=== PATIENT | male | born 1965 | race Caucasian/White ===

== ENCOUNTER 2017-06-04 22:58 | Emergency (ER) | payer MEDICAID, SELFPAY ==
[2017-06-04 22:59] VITALS: BP 192/141; PULSE 91; RESP 18; TEMP 36.3; O2SAT 96; BMI 29.9
--- NOTE | 2017-06-04 23:15 | EKG12_ITS ---
Test Reason : CP Blood Pressure : / mmHG Vent. Rate : 090 BPM Atrial Rate : 090 BPM P-R Int : 164 ms QRS Dur : 078 ms QT Int : 348 ms P-R-T Axes : 039 -14 -15 degrees QTc Int : 425 ms Normal sinus rhythm Nonspecific T wave abnormality Abnormal ECG Confirmed by JIMI SINGH ([id number]), loan expeditor DESTINY RICHARDS ([id number]) on 06/09/2017 10:01:59 AM Referred By: KRISTY Confirmed By:JIMI SINGH
--- NOTE | 2017-06-04 23:20 | RAD_ITS ---
STUDY: X-RAY CHEST REASON FOR EXAM: Male, 51 years old. Chest pain TECHNIQUE: Frontal and lateral views COMPARISON: January 03, 2017 FINDINGS: The lungs are clear and expanded. There is no demonstrated pleural abnormality. Normal size heart. Normal mediastinum and elsa. Normal visualized pulmonary arteries. Calcified aortic arch and descending thoracic aorta. Normal visualized thoracic spine. Normal visualized ribs, clavicles, and shoulders. There is no demonstrated abnormality of the visualized soft tissue structures of the upper abdomen. RAD/Chest PA and Lateral IMPRESSION: Normal x-ray examination of the chest. Electronically Signed: Leno Barnhart DO at 23:36 EST Tel [phone], Service support ,
[2017-06-04 23:22] VITALS: O2SAT 98
[2017-06-04 23:23] LABS: Absolute Lymphocyte Count 1.95 X10^3/ul (0.83-4.51); Absolute Neutrophil Count 3.9 X10^3/uL (2.0-7.7); Basophil# 0.02 X10^3/uL; Basophil% 0.3 % (0-1); Eosinophil# 0.18 X10^3/uL; Eosinophils% 2.7 % (0-5); Hematocrit 43.2 % (40-54); Hemoglobin 15.7 g/dl (13.0-16.5); Lymphocyte # 1.95 X10^3/ul (4.0); Lymphocyte % 29.5 % (19-41); Mean Corp Hgb Conc 36.3 g/gl (32-36); Mean Corpuscular Hgb 31.3 pg (27.0-32.0); Mean Corpuscular Volume 86.2 fL (80-94); Mean Platelet Vol. 9.3 fl (6.2-12.0); Monocyte# 0.53 X10^3/uL; Neutrophil # 3.92 X10^3/uL (2.7-7.7); Neutrophil % 59.3 % (47-70); Platelet Count 203 K/mm3 (150-450); RBC Distribution Width CV 12.1 % (11.6-14.6); RBC Distribution Width SD 37.3 fl (35.1-43.9); Red Blood Count 5.01 M/mm3 (4.6-6.2); White Blood Count 6.6 K/mm3 (4.4-11.0)
[2017-06-04 23:28] LABS: POSITIVE COUNT NO; POSITIVE DIFFERENTIAL NO; POSITIVE MORPHOLOGY NO
[2017-06-04] MEDS: Aspirin 81 MG TAB.CHEW 162 MG PO (23:36)
[2017-06-04 23:37] LABS: Anion Gap 10 (5-15); BUN 20 mg/dL (7-18); BUN/Creat Ratio 14.2 RATIO (10-20); Calcium,Total 8.4 mg/dL (8.5-10.1); Chloride 105 mmol/L (98-107); Creatinine, Serum 1.41 mg/dL (0.70-1.30); D-Dimer Quantitative (DVT/PE) < 0.27 FEU/ug/m (0.27-0.49); EST Glomerular Filtration Rate 57 mL/min (>60); Est Glom Filt Rate - Afr Amer 68 mL/min (>60); Estimated Creatinine Clearance 70.83 ml/min; Glucose 140 mg/dL (70-110); Potassium 3.4 mmol/L (3.5-5.1); Sodium Level 141 mmol/L (136-145)
[2017-06-04 23:42] VITALS: BP 137/90; PULSE 76
[2017-06-04 23:48] VITALS: BP 138/105; PULSE 94
[2017-06-05 00:29] VITALS: BP 118/86; PULSE 77; RESP 18; O2SAT 94
--- NOTE | 2017-06-05 00:52 | EKG12_ITS ---
Test Reason : REPEAT Blood Pressure : / mmHG Vent. Rate : 069 BPM Atrial Rate : 069 BPM P-R Int : 160 ms QRS Dur : 076 ms QT Int : 394 ms P-R-T Axes : 029 -09 -03 degrees QTc Int : 422 ms Normal sinus rhythm Nonspecific T wave abnormality Abnormal ECG Confirmed by JIMI SINGH ([id number]), managing editor DESTINY RICHARDS ([id number]) on 06/09/2017 10:01:48 AM Referred By: KRISTY Confirmed By:JIMI SINGH
[2017-06-05 01:15] VITALS: BP 122/83; PULSE 63; RESP 12; O2SAT 96
--- NOTE | 2017-06-05 02:00 | ED.VISSUMM ---
- ER Visit Summary Date of Service: 06/05/17 Chief Complaint: [] Chest pain History of Present Illness: The patient is a 51 M [] complaining of chest pain while watching a basketball game which made him upset. Symptoms started 1 hour ago. Reports chest pressure, denies pain. Denies nausea and vomiting. Denies diaphoresis. Denies shortness of breath. Reports he had a negative cardiac catheterization 2 years ago at [facility]. Reports he does smoke. Physical Examination: [] Afebrile, vital signs stable. Cardiovascular exam is regular rate and rhythm. Lungs are clear to auscultation. Abdomen is soft nontender. No lower extremity edema. Test Results: [] EKG shows normal sinus rhythm with rate of 90 without any ischemic changes. Repeat EKG approximately 2 hours later is unchanged. Initial troponin is less than 0.02. Repeat troponin is less than 0.02. CBC and BMP are within normal limits. Chest x-ray 2 views is negative. Emergency Department Course and Treatment: [] Given aspirin nitroglycerin upon arrival. He did have some hypertension which resolved after nitroglycerin. After 3 hours of observation and serial examination patient was completely pain-free. He represents a low risk patients with his complaint of chest pain with a JOSE score of 1 out of 7. In light of the negative cardiac catheterization 2 years ago and the negative workup today, was encouraged to follow-up with his primary care physician for an outpatient stress test. Treatment Plan: [] Discharge to follow-up with PCP. Disposition: [] Discharge, stable. Impression: [] Chest pain, unknown etiology This note was generated with [employer] dictation software. It may contain incorrect words, spelling, and punctuation that were not noted in review of the chart prior to signing ED Disposition - Plan for ED Patient: Chief Complaint: Chest Pain Referrals: Osiel Zarate MD [Primary Care Provider] -
--- NOTE | 2017-06-05 02:03 | ED.DCSUM_ITS ---
- ER Visit Summary Date of Service: 06/05/17 Chief Complaint: [] Chest pain History of Present Illness: The patient is a 51 M [] complaining of chest pain while watching a basketball game which made him upset. Symptoms started 1 hour ago. Reports chest pressure, denies pain. Denies nausea and vomiting. Denies diaphoresis. Denies shortness of breath. Reports he had a negative cardiac catheterization 2 years ago at [facility]. Reports he does smoke. Physical Examination: [] Afebrile, vital signs stable. Cardiovascular exam is regular rate and rhythm. Lungs are clear to auscultation. Abdomen is soft nontender. No lower extremity edema. Test Results: [] EKG shows normal sinus rhythm with rate of 90 without any ischemic changes. Repeat EKG approximately 2 hours later is unchanged. Initial troponin is less than 0.02. Repeat troponin is less than 0.02. CBC and BMP are within normal limits. Chest x-ray 2 views is negative. Emergency Department Course and Treatment: [] Given aspirin nitroglycerin upon arrival. He did have some hypertension which resolved after nitroglycerin. After 3 hours of observation and serial examination patient was completely pain-free. He represents a low risk patients with his complaint of chest pain with a JOSE score of 1 out of 7. In light of the negative cardiac catheterization 2 years ago and the negative workup today, was encouraged to follow-up with his primary care physician for an outpatient stress test. Treatment Plan: [] Discharge to follow-up with PCP. Disposition: [] Discharge, stable. Impression: [] Chest pain, unknown etiology This note was generated with [employer] dictation software. It may contain incorrect words, spelling, and punctuation that were not noted in review of the chart prior to signing ED Disposition - Plan for ED Patient: Chief Complaint: Chest Pain Referrals: Osiel Zarate MD [Primary Care Provider] -
--- NOTE | 2017-06-05 02:03 | ED.DEP ---
ED Disposition - Plan for ED Patient: Disposition: Home or Assisted Living Chief Complaint: Chest Pain Instructions: ED Chest Pain O Referrals: Osiel Zarate MD [Primary Care Provider] -
[2017-06-05 02:16] VITALS: BP 115/82; PULSE 69; RESP 19; O2SAT 95
--- NOTE | 2017-06-05 02:17 | ED.RN ---
PT GIVEN WRITTEN AND VERBAL DISCHARGE INSTRUCTIONS. PT VERBALIZES UNDERSTANDING. IV D/C AND COVERED IN 22 GAUZE DRESSING. PT AMBUALTORY HOME WITH SELF AND TO FOLLOW UP WITH PCP. REPORTS HE WILL RETURN FOR ANY NEW OR WORSENED SX.
== END 2017-06-05 02:18 | disposition home or self-care (01) ==
PROVIDERS: Emergency Provider Emergency Medicine; Family Provider Family Medicine; PCP Family Medicine
DX: R07.9 Chest pain, unspecified (principal); Z72.0 Tobacco use
CPT/HCPCS: 36415; 71046; 80048; 84484; 85025; 85379; 93005; 99285

== ENCOUNTER 2018-08-27 01:09 | Emergency (ER) | payer SELFPAY ==
[2018-08-27 01:10] VITALS: BP 132/106; PULSE 105; PULSE 110; RESP 15; RESP 16; TEMP 37.4; O2SAT 95; O2SAT 96; BMI 29.0
[2018-08-27 01:13] VITALS: O2SAT 94
--- NOTE | 2018-08-27 01:35 | RAD_ITS ---
HISTORY: cough x 3 days EXAM:XR Chest 2 Views COMPARISON: 06/04/2017 FINDINGS: EKG leads in place. No significant change. Normal heart size. Prominent lung volumes. No vascular congestion, pleural effusion, or acute pulmonary infiltration. No pneumothorax. The bony thorax appears intact. RAD/Chest PA and Lateral IMPRESSION: No acute cardiopulmonary disease. No significant interval change. at 1445 Reported and signed by: Nico Bose MD Electronically Signed: Nico Bose, at 2:34 EDT Tel , Service support ,
--- NOTE | 2018-08-27 02:43 | ED.DCSUM_ITS ---
- ER Visit Summary Date of Service: 08/27/18 Chief Complaint: Cough History of Present Illness: The patient is a 52 M who presents with a cough. He was diagnosed with influenza about 3 weeks ago. He has had some persistent cough since then but it worsened particularly in the last 3 days. He states he is intermittently short of breath. He also complains of chills sweats runny nose. He complains of burning chest pain with coughing. No vomiting. No diarrhea. He denies any medical problems or daily medications. Physical Examination: Afebrile initial heart rate 105 vitals otherwise unremarkable No distress Moist mucous membranes Heart regular rate and rhythm Lungs are clear I do not appreciate rales rhonchi wheezing Abdomen soft Test Results: Two-view chest x-ray shows no acute disease. Emergency Department Course and Treatment: X-ray normal as above. Patient's presentation is consistent with bronchitis. He has a benign exam and is well- appearing. He was advised on supportive care and discharged home. Treatment Plan: [] Disposition: Discharge Impression: Bronchitis This note was generated with [employer] dictation software. It may contain incorrect words, spelling, and punctuation that were not noted in review of the chart prior to signing ED Disposition - Plan for ED Patient: Referrals: Osiel Zarate MD [Primary Care Provider] -
--- NOTE | 2018-08-27 02:43 | ED.DEP ---
ED Disposition - Plan for ED Patient: Instructions: Acute Bronchitis Referrals: Osiel Zarate MD [Primary Care Provider] -
[2018-08-27 02:48] VITALS: BP 148/82; PULSE 88; RESP 16; O2SAT 99
== END 2018-08-27 02:49 | disposition home or self-care (01) ==
PROVIDERS: Emergency Provider Emergency Medicine; Family Provider Family Medicine; PCP Family Medicine
DX: J02.9 Acute pharyngitis, unspecified (principal)
CPT/HCPCS: 71046; 99282

== ENCOUNTER 2020-02-13 11:32 | Emergency (ER) | payer SELFPAY ==
[2020-02-13 11:33] VITALS: BP 127/95; PULSE 62; RESP 14; TEMP 36.4; O2SAT 97; BMI 30.4
--- NOTE | 2020-02-13 11:53 | EKG12_ITS ---
Test Reason : CP REPEAT Blood Pressure : / mmHG Vent. Rate : 055 BPM Atrial Rate : 055 BPM P-R Int : 160 ms QRS Dur : 086 ms QT Int : 438 ms P-R-T Axes : 016 -12 -14 degrees QTc Int : 419 ms Sinus bradycardia Otherwise normal ECG Confirmed by AMIE CASTILLO, SAMEERA ([id number]), clinical editor MUNA ARCOS ([id number]) on 02/15/2020 10:11:02 AM Referred By: KATELYNN Confirmed By:SAMEERA HOLLOWAY MD
--- NOTE | 2020-02-13 11:54 | ED.VIS.GEN ---
History of Present Illness Chief Complaint: Chest Pain Informant: Patient Onset: Today Current Severity: Mild Maximum Severity: Moderate Narrative: Patient presents with burning sensation in his upper chest and throat. He states he woke from sleep about an hour ago with burning in his upper chest and throat. He does have a history of reflux and takes Nexium every couple days. He states this was not typical of his reflux. He tried drinking some water and taking some Tums without improvement. He states after arriving in the emergency room symptoms seem to be improving. He does report a history of hypertension and high cholesterol. He had a heart cath approximately 10 years ago that he reports was normal. - Past Medical History (1) Hypertension Status: Chronic (2) High cholesterol Status: Chronic (3) Kidney stone Status: Chronic (4) Anxiety Status: Chronic Past Medical History - Allergies and Home Meds Allergies/Adverse Reactions: Allergies Penicillins [PCN] Allergy (Verified 02/13/20 11:35) Hives Primary Care Physician: Osiel Zarate MD [Primary Care Provider] - Prior records reviewed: Yes Surgical History: tonsillectomy Smoking Status: Never smoker - Family History Maternal Family History: Reports: Heart Disease Paternal Family History: Reports: No pertinent history Review of Systems General: Denies: Chills, Fever Eyes: Denies: Visual changes - bilaterally ENT: Reports: Sore throat. Denies: Bilateral ear pain Cardiovascular: Reports: Chest pain Respiratory: Denies: Dyspnea, Cough Gastrointestinal: Denies: Abdominal pain, Nausea, Vomiting, Diarrhea Musculoskeletal: Denies: Swelling, Extremity Pain Skin: Denies: Rash Neurological: Denies: Headache Endocrine: Denies: Polyuria, Polydipsia Hematologic: Denies: Easy bruising Allergy: Denies: Uticaria Physical Exam Vital Signs/Narrative: Vital Signs Temp Pulse Resp BP Pulse Ox 02/13/20 11:33 97.6 F L 62 14 127/95 H 97 Inital Vital Signs reviewed: Yes General: Well nourished, Well developed Head: Normocephalic ENT: Moist mucous membranes Neck: Supple Cardiovascular: Regular rate, Regular rhythm Respiratory: No distress, CTA bilaterally Abdomen: Soft, Nontender Extremities: Nontender Skin: Normal color Neurological: Alert, Oriented x3 Psychological: Normal affect Diagnostic/Tx/Re-eval Impressions Chest X-Ray 02/13/20 12:34 IMPRESSION: Normal x-ray examination of the chest. Electronically Signed: Sandra Adams, at 12:54 EDT Tel , Service support , 02/13/20 12:34 Chest 1 View (Portable) [RAD] Stat Laboratory Results 02/13/20 02/13/20 02/13/20 11:35 11:35 14:45 WBC 5.5 RBC 4.98 Hgb 15.2 Hct 44.8 MCV 90.0 MCH 30.5 MCHC 33.9 RDW Std Deviation 38.2 RDW Coeff of Jesse 11.6 Plt Count 184 MPV 9.3 Immature Gran % (Auto) 0.400 Neut % (Auto) 54.7 Lymph % (Auto) 29.8 [place] % (Auto) 9.3 Eos % (Auto) 5.3 H Baso % (Auto) 0.5 Absolute Neuts (auto) 3.0 Absolute Lymphs (auto) 1.64 Nucleated RBC % 0 Sodium 141 Potassium 3.7 Chloride 108 H Carbon Dioxide 27.0 Anion Gap 6 BUN 17 Creatinine 1.37 H Estim Creat Clear Calc 70.47 Est GFR (MDRD) Af Amer 70 Est GFR (MDRD) Non-Af 58 L BUN/Creatinine Ratio 12.4 Glucose 97 Calcium 8.9 Troponin I < 0.015 < 0.015 - EKG Initial EKG Interpretation: Sinus Bradycardia - Sinus bradycardia at 58 with no acute ischemia. Follow-up EKG Interpretation: Sinus Bradycardia - Sinus bradycardia at 55 with no acute ischemia. - Medical Decision Making Patient was given aspirin as well as a dose of Protonix. On repeat evaluation he is resting comfortably. Patient had only had pain for about 45 minutes with the initial blood work was drawn. In light of this a 3-hour repeat test was drawn and remains normal. He will be discharged home at this time. He is instructed to take his Nexium every day and not eat or drink anything right before going to bed to see if this helps. ED Disposition - Plan for ED Patient: Disposition: Home or Assisted Living Diagnosis: Atypical chest pain, GERD (gastroesophageal reflux disease) Instructions: ED Chest Pain NonCardiac, Lifestyle Changes for Controlling GERD Referrals: Osiel Zarate MD [Primary Care Provider] - 3-5 Days if not improving
[2020-02-13] MEDS: Aspirin 81 MG TAB.CHEW 324 MG PO (12:01)
[2020-02-13 12:02] LABS: Absolute Lymphocyte Count 1.64 X10^3/uL (0.83-4.51); Basophil# 0.03 X10^3/uL; Basophil% 0.5 % (0-1); Eosinophil# 0.29 X10^3/uL; Eosinophils% 5.3 % (0-5); Hematocrit 44.8 % (40-54); Hemoglobin 15.2 g/dL (13.0-16.5); Lymphocyte # 1.64 X10^3/ul (4.0); Lymphocyte % 29.8 % (19-41); Mean Corp Hgb Conc 33.9 g/dL (32-36); Mean Corpuscular Hgb 30.5 pg (27.0-32.0); Mean Platelet Vol. 9.3 fl (6.2-12.0); Monocyte# 0.51 X10^3/uL; Monocyte% 9.3 % (0-10); NRBC Flagged by Analyzer 0 % (0-5); Neutrophil # 3.01 X10^3/uL (2.7-7.7); Neutrophil % 54.7 % (47-70); Platelet Count 184 K/mm3 (150-450); RBC Distribution Width CV 11.6 % (11.6-14.6); RBC Distribution Width SD 38.2 fl (35.1-43.9); Red Blood Count 4.98 M/mm3 (4.6-6.2); White Blood Count 5.5 K/mm3 (4.4-11.0)
[2020-02-13 12:28] LABS: Anion Gap 6 (5-15); BUN 17 mg/dL (7-18); BUN/Creat Ratio 12.4 RATIO (10-20); Calcium,Total 8.9 mg/dL (8.5-10.1); Chloride 108 mmol/L (98-107); Creatinine, Serum 1.37 mg/dL (0.70-1.30); EST Glomerular Filtration Rate 58 mL/min (>60); Est Glom Filt Rate - Afr Amer 70 mL/min (>60); Estimated Creatinine Clearance 70.47 ml/min; Glucose 97 mg/dL (74-106); Potassium 3.7 mmol/L (3.5-5.1); Sodium Level 141 mmol/L (136-145)
--- NOTE | 2020-02-13 12:34 | RAD_ITS ---
STUDY: X-RAY CHEST REASON FOR EXAM: Male, 54 years old. BURNING IN CHEST AND THROAT SINCE WAKING UP THIS MORNING -- HX OF HTN TECHNIQUE: Single AP portable view of the chest. COMPARISON: None. FINDINGS: The lungs are clear and expanded. There is no demonstrated pleural abnormality. Normal size heart. Normal mediastinum and elsa. Normal visualized pulmonary arteries. Normal visualized aortic arch and descending thoracic aorta. Normal visualized thoracic spine. Normal visualized ribs, clavicles, and shoulders. There is no demonstrated abnormality of the visualized soft tissue structures of the upper abdomen. RAD/Chest 1 View (Portable) IMPRESSION: Normal x-ray examination of the chest. Electronically Signed: Sandra Adams, at 12:54 EDT Tel , Service support ,
[2020-02-13 13:25] VITALS: BP 142/106; PULSE 50; RESP 16; O2SAT 97
[2020-02-13] MEDS: 0.9% Normal Saline 1,000 ML 150 ML IV (13:25)
[2020-02-13 13:26] VITALS: O2SAT 98
--- NOTE | 2020-02-13 14:17 | EKG12_ITS ---
Test Reason : CP Blood Pressure : / mmHG Vent. Rate : 058 BPM Atrial Rate : 058 BPM P-R Int : 164 ms QRS Dur : 088 ms QT Int : 416 ms P-R-T Axes : 024 -14 -08 degrees QTc Int : 408 ms Sinus bradycardia Otherwise normal ECG Confirmed by AMIE CASTILLO, SAMEERA ([id number]), movie editor MUNA ARCOS ([id number]) on 02/15/2020 10:11:16 AM Referred By: Confirmed By:SAMEERA HOLLOWAY MD
[2020-02-13 15:55] VITALS: BP 128/98; PULSE 48; RESP 17; O2SAT 96
== END 2020-02-13 15:59 | disposition home or self-care (01) ==
PROVIDERS: Emergency Provider Emergency Medicine; PCP Family Medicine
DX: R07.89 Other chest pain (principal); K21.9 Gastro-esophageal reflux disease without esophagitis; R00.1 Bradycardia, unspecified; E78.00 Pure hypercholesterolemia, unspecified; F41.9 Anxiety disorder, unspecified; I10 Essential (primary) hypertension; Z82.49 Family history of ischemic heart disease and other diseases of the circulatory system; Z87.442 Personal history of urinary calculi; Z88.0 Allergy status to penicillin
CPT/HCPCS: 71045; 80048; 84484; 85025; 93005; 96365; 96366; 99285; J7030; A4216

== ENCOUNTER 2020-03-11 05:55 | Emergency (ER) | payer SELFPAY ==
[2020-03-11 05:56] VITALS: BP 139/111; PULSE 104; RESP 16; TEMP 36.8; O2SAT 96; BMI 29.4
--- NOTE | 2020-03-11 06:15 | ED.VISSUMM ---
- ER Visit Summary Date of Service: 03/11/20 Chief Complaint: Headache, sore throat, fever History of Present Illness: The patient is a 54 M who presents with headache, sore throat, and fever that is been getting worse over the past 5 days. Patient was seen at an urgent care recently and had a COVID-19 test done there. Patient does not know the results of this yet. Patient states his headache is sharp and generalized. Patient states his fever has been up to 101 at home. Patient admits to occasional shortness of breath. Patient also admits to diarrhea. Patient denies any nausea or vomiting. Patient denies any cough. Physical Examination: Vital signs are stable. Patient is afebrile. Patient is in no acute distress. Tympanic membranes are clear bilaterally. Oral mucosa is pink and moist. Neck is supple. Trachea is midline. There is no JVD. Heart was regular rate and rhythm. Lungs are clear and equal bilaterally. Abdomen is soft. Bowel sounds are normal. There is no tenderness. Cranial nerves II through XII are intact. There are no focal motor or sensory deficits noted. Test Results: Portable chest x-ray was obtained. There is no acute cardiopulmonary process on my interpretation. Emergency Department Course and Treatment: Patient was advised of his findings. Patient was advised that this is most likely COVID-19. Patient was instructed to follow-up with the urgent care for his test results. Patient was instructed to take Tylenol or ibuprofen as needed for fever. Patient was also instructed to follow-up with his primary care physician in 5 to 7 days. Patient was instructed to return if worse in any way. Patient understood and was agreeable with the plan. All questions were answered. Disposition: Discharge home Impression: 1. Viral upper respiratory infection 2. Suspected COVID-19 This note was generated with [employer] software. It may contain incorrect words, spelling, and punctuation that were not noted in review of the chart prior to signing ED Disposition - Plan for ED Patient: Disposition: Home or Assisted Living Diagnosis: Viral upper respiratory infection Instructions: ED URI Viral Referrals: Osiel Zarate MD [Primary Care Provider] - 3-5 Days
--- NOTE | 2020-03-11 06:35 | RAD_ITS ---
STUDY: X-RAY CHEST REASON FOR EXAM: Male, 54 years old. pt with h/a, sore throat, runny nose. temp of 101 yesterday. TECHNIQUE: Single AP portable view of the chest. COMPARISON: 02/13/2020 FINDINGS: There are no confluent pulmonary infiltrates. There is no demonstrated pleural abnormality. Normal size heart. Normal mediastinum and elsa. Normal visualized aortic arch and descending thoracic aorta. There are no demonstrated acute fractures or destructive bone lesions. There is no demonstrated abnormality of the visualized soft tissue structures of the upper abdomen. RAD/Chest 1 View (Portable) IMPRESSION: Normal x-ray examination of the chest. Electronically Signed: Jude John MD at 7:01 EST , Service support ,
[2020-03-11 07:22] VITALS: BP 121/74; PULSE 82; RESP 18; O2SAT 97
--- NOTE | 2020-03-11 07:23 | ED.RN ---
THIS NURSE REVIEWED D/C INSTRUCTIONS WITH PT. PT VERBALIZED UNDERSTANDING OF INSTRUCTIONS. PT DENIES FURTHER NEEDS OR QUESTIONS AT THIS TIME. PT AMBULATES FROM ROOM ON OWN WITHOUT ASSISTANCE FROM STAFF
== END 2020-03-11 07:25 | disposition home or self-care (01) ==
PROVIDERS: Emergency Provider Emergency Medicine; PCP Family Medicine
DX: J06.9 Acute upper respiratory infection, unspecified (principal); R06.02 Shortness of breath; R19.7 Diarrhea, unspecified; J02.9 Acute pharyngitis, unspecified; Z20.828 Contact with and (suspected) exposure to other viral communicable diseases
CPT/HCPCS: 71045; 99282

== ENCOUNTER 2020-03-12 11:26 | Emergency (ER) | payer SELFPAY ==
[2020-03-11 05:56] VITALS: BMI 29.4
[2020-03-12 11:26] VITALS: PULSE 86; RESP 16; TEMP 36.4; O2SAT 98; BMI 29.7
[2020-03-12 11:34] VITALS: BP 133/94
--- NOTE | 2020-03-12 11:42 | ED.DCSUM_ITS ---
- ER Visit Summary Date of Service: 03/12/20 Chief Complaint: Shortness of breath, loss of taste and smell History of Present Illness: The patient is a 54 M who presents with shortness of breath and loss of his taste and smell. He was tested for coronavirus 4 days ago. He was the result was positive. Last night he was feeling good. He was seen here yesterday and had a chest x-ray which showed no acute abnormalities. He was discharged home with symptomatic care. He states last night he started getting a little bit worse. He lost his sense of taste and smell. His temperature was 102 ?F. It was controlled with Tylenol and ibuprofen. No history of any lung issues. He denies any chest pain. He has no other health issues. He is a non-smoker. Physical Examination: Vital signs reviewed. HEENT exam unremarkable. Heart is regular rate and rhythm without murmurs. Lungs are clear to auscultation. Abdomen is soft and nontender. Extremities reveal no edema. Skin exam normal. Neurologic exam normal. Test Results: None performed Emergency Department Course and Treatment: The patient is known positive for coronavirus. His pulse ox and other vital signs are normal at this time. He is in no distress. He was concerned because his symptoms worsen. I instructed him on the clinical course of this virus. I will give him an albuterol inhaler to help with his respiratory symptoms. He will continue Tylenol and ibuprofen. He is going to call his doctor for follow-up Treatment Plan: [] Disposition: Discharge Impression: COVID-19 This note was generated with [employer] dictation software. It may contain incorrect words, spelling, and punctuation that were not noted in review of the chart prior to signing ED Disposition - Plan for ED Patient: Disposition: Home or Assisted Living Prescriptions: Albuterol Inhaler [Ventolin Hfa] 1 - 2 puff INHALATION Q4H PRN PRN #1 inhaler PRN Reason: Wheezing Transmission Status: Pending to [id number] Referrals: Osiel Zarate MD [Primary Care Provider] -
== END 2020-03-12 12:12 | disposition home or self-care (01) ==
LOC: ED 11:57
PROVIDERS: Emergency Provider Emergency Medicine; PCP Family Medicine
DX: U07.1 COVID-19 (principal)
CPT/HCPCS: 99282

== ENCOUNTER 2020-03-14 14:42 | Emergency (ER) | payer SELFPAY ==
[2020-03-14 14:43] VITALS: BP 141/18; PULSE 109; RESP 18; TEMP 37.2; O2SAT 96; BMI 29.7
== END 2020-03-14 16:02 ==
LOC: ED 15:57
PROVIDERS: Emergency Provider Emergency Medicine; PCP Family Medicine
DX: R06.02 Shortness of breath (principal)

== ENCOUNTER 2020-03-16 11:11 | Emergency (ER) | payer SELFPAY ==
[2020-03-16 11:12] VITALS: BP 107/76; PULSE 76; RESP 18; TEMP 36.8; O2SAT 97; BMI 29.7
--- NOTE | 2020-03-16 12:23 | ED.VIS.GEN ---
History of Present Illness Chief Complaint: Headache Informant: Patient Narrative: 54-year-old male diagnosed with Covid?19 7 days ago presenting with symptoms of dizziness. He states he has had some intermittent fevers. His biggest complaint is that he feels dizzy sometimes. He cannot decide whether it is lightheaded or vertiginous in nature. He states he had a headache this morning that resolved with Tylenol. Still has a slight cough. He has body aches as well. - Past Medical History (1) High cholesterol Status: Chronic (2) Hypertension Status: Chronic Past Medical History - Allergies and Home Meds Allergies/Adverse Reactions: Allergies Penicillins [PCN] Allergy (Verified 03/16/20 11:12) Hives Primary Care Physician: Osiel Zarate MD [Primary Care Provider] - Past Medical History: - - Reviewed in problem list Surgical History: noncontributory, tonsillectomy Lives: With Family Smoking Status: Unknown if ever smoked Alcohol: None Drugs: None - Family History Maternal Family History: Reports: Heart Disease Paternal Family History: Reports: No pertinent history Review of Systems General: Reports: Chills, Fever Eyes: Reports: - - Dizziness. Denies: Visual changes - bilaterally, Diplopia ENT: Denies: Rhinorrhea, Sore throat Cardiovascular: Denies: Chest pain, Palpitations Respiratory: Reports: Cough. Denies: Dyspnea Gastrointestinal: Denies: Abdominal pain, Nausea, Vomiting, Diarrhea, Melena, Hematochezia Genitourinary: Denies: Dysuria Musculoskeletal: Reports: Myalgias. Denies: Arthralgias Skin: Denies: Rash Neurological: Reports: Headache. Denies: Parasthesia, Numbness Physical Exam Vital Signs/Narrative: Vital Signs Temp Pulse Resp BP Pulse Ox 03/16/20 11:12 98.2 F 76 18 107/76 97 Inital Vital Signs reviewed: Yes General: Well nourished, Well developed Head: Normocephalic, Atraumatic Eyes: Perrl, EOMI ENT: Moist mucous membranes, No rhinorrhea Cardiovascular: Regular rate, Regular rhythm Respiratory: No distress, CTA bilaterally Extremities: Nontender, No edema Skin: Normal color, No rash. Negative for: Cyanosis, Diaphoresis Neurological: Alert, Oriented x3, Cranial nerves II-XII grossly intact Psychological: Normal affect, Normal Mood Diagnostic/Tx/Re-eval - Medical Decision Making Patient presents with known Covid?19 infection. He has been to the hospital multiple times. His physical exam is normal. His lungs are clear to auscultation. His heart rate is regular rate and rhythm. There is no murmurs. He is not hypoxic. He is nontoxic-appearing. I personally ambulated him in the room and he had his both a steady gait and he did not become hypoxic. Patient is counseled that he does not need to be admitted to the hospital. We did discuss return precautions and he does acknowledge understanding of this. Impression: 1. Covid?19 infection 2. Dizziness ED Disposition - Plan for ED Patient: Disposition: Home or Assisted Living Instructions: ED Headache Unspecified Referrals: Osiel Zarate MD [Primary Care Provider] -
== END 2020-03-16 13:14 | disposition home or self-care (01) ==
PROVIDERS: Emergency Provider Student in an Organized Health Care Education/Training Program; PCP Family Medicine
DX: U07.1 COVID-19 (principal); R42 Dizziness and giddiness; E78.00 Pure hypercholesterolemia, unspecified; I10 Essential (primary) hypertension; Z82.49 Family history of ischemic heart disease and other diseases of the circulatory system; Z88.0 Allergy status to penicillin
CPT/HCPCS: 99284

== ENCOUNTER 2020-08-12 05:31 | Emergency (ER) | payer MEDICAID, SELFPAY ==
[2020-08-12 05:32] VITALS: BP 159/102; PULSE 108; RESP 16; TEMP 36.7; O2SAT 96; BMI 35.5
--- NOTE | 2020-08-12 05:38 | EKG12_ITS ---
Test Reason : THROAT PAIN Blood Pressure : / mmHG Vent. Rate : 087 BPM Atrial Rate : 087 BPM P-R Int : 152 ms QRS Dur : 078 ms QT Int : 348 ms P-R-T Axes : 039 000 009 degrees QTc Int : 418 ms Normal sinus rhythm T wave abnormality, consider anterior ischemia Abnormal ECG Confirmed by AMIE CASTILLO, SAMEERA ([id number]), editor managing director DESTINY RICHARDS ([id number]) on 08/15/2020 7:50:14 AM Referred By: JARETH Confirmed By:SAMEERA HOLLOWAY MD
--- NOTE | 2020-08-12 05:39 | ED.VIS.GEN ---
History of Present Illness Chief Complaint: Sore Throat Informant: Patient Onset: Days Context: Gradual Onset Current Severity: Moderate Maximum Severity: Moderate Narrative: Patient present secondary to sore throat. He states he is had sore throat for the past couple of weeks. He woke this morning with significant burning in his throat. He points to the [place] apple down into the upper portion of the sternum and describing his area of burning pain. He denies any other URI symptoms but is coughing frequently during exam. No fevers or chills. Patient did have Covid in March. - Past Medical History (1) GERD (gastroesophageal reflux disease) Status: Chronic (2) Anxiety Status: Chronic (3) High cholesterol Status: Chronic (4) Hypertension Status: Chronic Past Medical History - Allergies and Home Meds Allergies/Adverse Reactions: Allergies Penicillins [PCN] Allergy (Verified 08/12/20 05:35) Hives Primary Care Physician: Osiel Zarate MD [Primary Care Provider] - Prior records reviewed: Yes Surgical History: noncontributory, tonsillectomy Smoking Status: Never smoker - Family History Maternal Family History: Reports: Heart Disease Paternal Family History: Reports: No pertinent history Review of Systems General: Denies: Chills, Fever Eyes: Denies: Visual changes - bilaterally ENT: Reports: Sore throat. Denies: Left ear pain, Right ear pain Cardiovascular: Denies: Chest pain Respiratory: Denies: Dyspnea, Cough Gastrointestinal: Denies: Abdominal pain, Vomiting, Diarrhea Genitourinary: Denies: Dysuria Musculoskeletal: Denies: Swelling, Extremity Pain Skin: Denies: Rash Neurological: Denies: Headache Hematologic: Denies: Easy bruising, Easy bleeding Allergy: Denies: Uticaria Physical Exam Vital Signs/Narrative: Vital Signs Temp Pulse Resp BP Pulse Ox 08/12/20 05:32 98.1 F 108 H 16 159/102 H 96 Inital Vital Signs reviewed: Yes General: Well nourished, Well developed Head: Normocephalic ENT: Moist mucous membranes, - - Posterior pharynx examination unremarkable. Patient tolerating secretions well and speaks with a strong voice. Neck: Supple, Nontender Cardiovascular: Regular rate, Regular rhythm Respiratory: No distress, CTA bilaterally Abdomen: Soft, Nontender Skin: Normal color Neurological: Alert, Oriented x3 Psychological: Normal affect Diagnostic/Tx/Re-eval Chest X-Ray - ED: 1 View, Read by ED Physician, Normal, Heart, Lungs, Mediastinum Impressions Chest X-Ray 08/12/20 06:22 IMPRESSION: Degenerative changes, as described above. No demonstrated acute cardiopulmonary process. Electronically Signed: Manuela Reyes MD at 7:05 EDT Tel , Service support , 08/12/20 06:22 Chest 1 View (Portable) [RAD] Stat Laboratory Results 08/12/20 08/12/20 06:15 06:15 WBC 7.6 RBC 4.93 Hgb 15.6 Hct 44.0 MCV 89.2 MCH 31.6 MCHC 35.5 RDW Std Deviation 37.3 RDW Coeff of Jesse 11.7 Plt Count 218 MPV 9.2 Immature Gran % (Auto) 0.300 Neut % (Auto) 57.1 Lymph % (Auto) 31.8 [place] % (Auto) 7.1 Eos % (Auto) 3.2 Baso % (Auto) 0.5 Absolute Neuts (auto) 4.3 Absolute Lymphs (auto) 2.41 Nucleated RBC % 0 Sodium 138 Potassium 3.6 Chloride 104 Carbon Dioxide 25.0 Anion Gap 9 BUN 25 H Creatinine 1.42 H Estim Creat Clear Calc 54.29 Est GFR (MDRD) Af Amer 67 Est GFR (MDRD) Non-Af 55 L BUN/Creatinine Ratio 17.6 Glucose 128 H Calcium 8.3 L Troponin I < 0.015 - EKG Initial EKG Interpretation: Sinus Rhythm - Sinus 87. T wave flattening in V2 with slight inversion in V3. No acute ST change. - Medical Decision Making Patient was initially ordered an EKG and GI cocktail. Patient spit the GI cocktail out stating it felt like his throat was closing. With the patient pointing to the lower throat and upper chest I did choose to pursue a chest pain work-up to ensure no cardiac etiology for his symptoms. Troponin and other lab work along with chest x-ray are unremarkable. Patient was given Toradol and Zofran. On repeat evaluation he does note some improvement. With the patient describing a burning sensation in his lower throat upper chest I do believe this likely represents reflux. He states has been on Zantac for quite some time. He will be switched to Pepcid for couple weeks to see if that improves his symptoms. He is given return instructions. ED Disposition - Plan for ED Patient: Disposition: Home or Assisted Living Diagnosis: Sore throat Instructions: ED Pharyngitis, Viral, ED Chest Pain, Uncertain Cause Prescriptions: Famotidine [Pepcid] 20 mg PO BID #28 tab Transmission Status: Pending to [facility] Referrals: Osiel Zarate MD [Primary Care Provider] - 3-5 Days if not improving
[2020-08-12] MEDS: Mag Hydrox/Al Hydrox/Simeth 30 ML UDC PO (05:43)
[2020-08-12 06:17] VITALS: BP 135/93; PULSE 84; RESP 16; O2SAT 94
[2020-08-12 06:18] LABS: Absolute Lymphocyte Count 2.41 X10^3/uL (0.83-4.51); Absolute Neutrophil Count 4.3 X10^3/uL (2.0-7.7); Basophil# 0.04 X10^3/uL; Basophil% 0.5 % (0-1); Eosinophil# 0.24 X10^3/uL; Eosinophils% 3.2 % (0-5); Hemoglobin 15.6 g/dL (13.0-16.5); Lymphocyte # 2.41 X10^3/ul (4.0); Lymphocyte % 31.8 % (19-41); Mean Corp Hgb Conc 35.5 g/dL (32-36); Mean Corpuscular Hgb 31.6 pg (27.0-32.0); Mean Corpuscular Volume 89.2 fL (80-94); Mean Platelet Vol. 9.2 fl (6.2-12.0); Monocyte# 0.54 X10^3/uL; Monocyte% 7.1 % (0-10); NRBC Flagged by Analyzer 0 % (0-5); Neutrophil # 4.33 X10^3/uL (2.7-7.7); Neutrophil % 57.1 % (47-70); Platelet Count 218 K/mm3 (150-450); RBC Distribution Width CV 11.7 % (11.6-14.6); RBC Distribution Width SD 37.3 fl (35.1-43.9); Red Blood Count 4.93 M/mm3 (4.6-6.2); White Blood Count 7.6 K/mm3 (4.4-11.0)
[2020-08-12] MEDS: Ondansetron 4 MG/2 ML Vial IV (06:22)
[2020-08-12] MEDS: Ketorolac 30 MG/ML Syringe IV (06:22)
--- NOTE | 2020-08-12 06:22 | RAD_ITS ---
STUDY: X-RAY CHEST REASON FOR EXAM: Male, 54 years old. Chest pain and burning with cough. TECHNIQUE: Single AP portable view of the chest. COMPARISON: None. FINDINGS: The lungs are clear and expanded. There is no demonstrated pleural abnormality. Normal size heart. Normal mediastinum and elsa. Normal visualized pulmonary arteries. Normal visualized aortic arch and descending thoracic aorta. There are diffuse degenerative changes of the visualized thoracic spine. Normal visualized ribs, clavicles, and shoulders. There is no demonstrated abnormality of the visualized soft tissue structures of the upper abdomen. RAD/Chest 1 View (Portable) IMPRESSION: Degenerative changes, as described above. No demonstrated acute cardiopulmonary process. Electronically Signed: Manuela Reyes MD at 7:05 EDT Tel , Service support ,
[2020-08-12 06:43] LABS: Anion Gap 9 (5-15); BUN 25 mg/dL (7-18); BUN/Creat Ratio 17.6 RATIO (10-20); Calcium,Total 8.3 mg/dL (8.5-10.1); Chloride 104 mmol/L (98-107); Creatinine, Serum 1.42 mg/dL (0.70-1.30); EST Glomerular Filtration Rate 55 mL/min (>60); Est Glom Filt Rate - Afr Amer 67 mL/min (>60); Estimated Creatinine Clearance 54.29 ml/min; Glucose 128 mg/dL (74-106); Potassium 3.6 mmol/L (3.5-5.1); Sodium Level 138 mmol/L (136-145)
== END 2020-08-12 07:42 | disposition home or self-care (01) ==
PROVIDERS: Emergency Provider Emergency Medicine; PCP Family Medicine
DX: J02.9 Acute pharyngitis, unspecified (principal); K21.9 Gastro-esophageal reflux disease without esophagitis; E78.00 Pure hypercholesterolemia, unspecified; F41.9 Anxiety disorder, unspecified; I10 Essential (primary) hypertension; Z88.0 Allergy status to penicillin; Z86.16 Personal history of COVID-19; Z82.49 Family history of ischemic heart disease and other diseases of the circulatory system
CPT/HCPCS: 71045; 80048; 84484; 85025; 93005; 99285; A4216; J2405

== ENCOUNTER 2021-01-07 09:29 | Emergency (ER) | payer MEDICAID, SELFPAY ==
[2021-01-07 09:30] VITALS: BP 130/112; PULSE 71; RESP 18; TEMP 37; O2SAT 96; BMI 30.6
--- NOTE | 2021-01-07 09:58 | EDS_ITS ---
HPI History of Present Illness Chief Complaint: Headache Detail of Chief Complaint: Viral symptoms and severe headache Informant: patient Onset/Context/Timing Onset: Hours (Headache started 4 hours prior to presentation.) and Days (Illness started last Thursday with mild upper respiratory symptoms and diarrhea.) Context: Sudden Onset Timing: Continuous Quality: Global headache with photophobia and viral-like symptoms Current Severity: Severe Maximum Severity: Severe Worsened by: Light and supine position Relieved by: Nothing Associated Symptoms Associated Symptoms: Per HPI Narrative Narrative: 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 There is associated with photophobia. The headache is positional. He does report rhinorrhea and slight congestion. He also reports diarrhea. The congestion and diarrhea started last week. He had a negative Covid test last week. He was positive for Covid last year, January 2020. He did not get vaccinated because he was positive for Covid. He does report nausea without vomiting. He has had diarrhea for the past couple of days. Has not noted blood or mucus in his diarrhea. He denies dysuria, frequency, urgency or hematuria. He denies myalgias or arthralgias. He denies rash. He denies double vision or change in vision. Prior similar symptoms: No Recent Illness/Hospitalization: No PFSH PFSH Home Medications aspirin 81 mg PO DAILY@0800 #30 tab 01/05/17 [Rx Last Taken 03/16/20] cholecalciferol (vitamin D3) 1,000 unit PO DAILY 03/11/20 [History Last Taken 03/16/20] esomeprazole magnesium 20 mg PO DAILY 03/11/20 [History Last Taken 03/16/20] albuterol sulfate 1 - 2 puff INHALATION Q4H PRN PRN #1 inhaler 03/12/20 [Rx Last Taken Unknown] famotidine 20 mg PO BID #28 tab 08/12/20 [Rx Last Taken Unknown] Allergy/AdvReac Type Severity Reaction Status Date / Time Penicillins [PCN] Allergy Hives Verified 01/07/21 09:31 Surgical History (Updated 01/07/21 @ 10:20 by Fiorella Butler RN) Hx of tonsillectomy Social History (Updated 01/07/21 @ 10:[address] Juan Bro MD) household members: none Smoking Status: Never smoker alcohol intake: never substance use type: does not use ROS ROS ED Constitutional Constitutional ED: Denies chills, fever(s), subjective or sweats Eyes Eyes: Denies blurry vision, change in vision or diplopia ENT ENT ED: Reports rhinorrhea; Denies ear pain or sore throat Cardiovascular Cardiovascular: Denies chest pain, orthopnea, palpitations or racing heartbeat Respiratory/Chest Respiratory/Chest: Denies cough, dyspnea, dyspnea on exertion or orthopnea Gastrointestinal Gastrointestinal: Reports abdominal pain and diarrhea; Denies constipation, melena, nausea or vomiting Genitourinary Genitourinary ED: Denies dysuria, hematuria, LMP (females 10-50) or urinary frequency Musculoskeletal Musculoskeletal: Reports neck pain; Denies arthralgias, back pain or myalgias Integumentary Denies rash Neurologic Neurologic: Reports headache(s); Denies paresthesias or weakness Endocrine Endocrinology: Denies polydipsia, polyphagia or polyuria Allergic/Immunologic Allergic/Immunologic ED: Denies mouth swelling, tongue swelling or urticaria EXAM Physical Exam Const Vital Signs: 01/07/21 09:30 01/07/21 10:19 01/07/21 11:42 Temperature 98.6 F 97.9 F 97.6 F L Temperature Source Temporal Temporal Oral Pulse Rate 71 60 56 L Respiratory Rate 18 18 17 Blood Pressure 130/112 H 145/103 H 119/88 H Blood Pressure Mean 118 117 98 Pulse Ox 96 94 97 Oxygen Delivery Method Room Air Room Air 01/07/21 12:12 Temperature Temperature Source Pulse Rate 62 Respiratory Rate 15 Blood Pressure 134/79 H Blood Pressure Mean 97 Pulse Ox 99 Oxygen Delivery Method Room Air Positive well nourished and well developed General Appearance ED: well developed and other Patient was holding his head as I entered the room. HEENT Reports TM's clear and dry mucous membranes HEENT Narrative: TMs normal. Nares patent. No photophobia. Tympanic Membrane ED: Yes TM's clear Mouth ED: Yes dry mucous membranes Mouth: dry mucous membranes Eyes PERRL and EOMs intact bilaterally Eyes Narrative: There is no nystagmus. General Eye ED: Negative for pale conjunctiva or scleral icterus Neck no lymphadenopathy, supple and no JVD General: Negative for tenderness Chest Wall palpation of chest normal Resp normal respiratory effort and clear to auscultation bilaterally Cardio regular rate, regular rhythm, S1 normal heart sound, S2 normal heart sound and no murmurs GI normal to inspection, nondistended, normoactive bowel sounds, non-tender and non-distended Palpation: soft Back/Spine no CVA tenderness Extremity normal to inspection Extremity Narrative: There is no asymmetry, swelling, discoloration, leg vein distention, palpable cords or tenderness along the distribution of the deep venous system. General Extremety ED: Negative for edema or tenderness General Extremity: Negative for edema Neuro oriented x3, CN's II-XII intact bilaterally and no sensory deficits noted Sensorium / Orientation: alert Motor Exam: strength 5/5 throughout Psych mental status grossly normal Skin no rashes or lesions noted, no wounds and skin turgor normal MDM MDM MDM Narrative Medical decision making narrative: Suspect patient has viral cephalgia. However with him claiming this is the worst headache he has had and the abruptness of the onset will obtain CT of the head to rule out subarachnoid hemorrhage. This may also represent sphenoid sinusitis. Most likely the cause of his symptoms is a viral illness. Covid test was not repeated since he had a clinically he appears dehydrated. Normal saline was ordered. Appropriate blood work to assess for anemia, white count, renal function and electrolytes and specifically hypokalemia since he is reporting diarrhea. Lab Data Attestation: I reviewed the patient's lab results. Lab results narrative: White count differential unremarkable. Electrolyte panel is unremarkable. Lactate is normal. Labs: Laboratory Results - last 24 hr 01/07/21 01/07/21 01/07/21 10:10 10:10 10:10 WBC 10.3 RBC 5.36 Hgb 16.2 Hct 47.2 MCV 88.1 MCH 30.2 MCHC 34.3 RDW Std Deviation 37.1 RDW Coeff of Jesse 11.6 Plt Count 218 MPV 9.2 Immature Gran % (Auto) 0.300 Neut % (Auto) 76.5 H Lymph % (Auto) 12.4 L [place] % (Auto) 7.2 Eos % (Auto) 3.1 Baso % (Auto) 0.5 Absolute Neuts (auto) 7.9 H Absolute Lymphs (auto) 1.28 Nucleated RBC % 0 Sodium 138 Potassium 3.8 Chloride 104 Carbon Dioxide 30.0 Anion Gap 4 L BUN 18 Creatinine 1.27 Estim Creat Clear Calc 75.15 Est GFR (MDRD) Af Amer 76 Est GFR (MDRD) Non-Af 63 BUN/Creatinine Ratio 14.2 Glucose 94 Lactic Acid 1.0 Calcium 8.9 Total Bilirubin 1.30 H AST 39 H ALT 90 H Alkaline Phosphatase 75 Total Protein 7.5 Albumin 4.2 Globulin 3.3 Albumin/Globulin Ratio 1.3 Radiography Diagnostic Testing: Radiology Impression Brain CT 01/07/21 10:38 IMPRESSION: Normal unenhanced CT scan of the brain. Electronically Signed: Yue Zamora MD at 11:10 EDT Tel , Service support , CT reveals no abnormality. Since patient presented with an hours of the onset of his pain and CT is negative subarachnoid hemorrhage has been ruled out. Patient states he is markedly better after the medicine he received. He was informed this is due to a viral illness. Discharge Plan Triage Chief Complaint: Headache Other Complaint: General Illness ED Provider: Juan Bro Dx/Rx/DC Orders Clinical Impression: Viral cephalgia, Diarrhea, Dehydration, mild Instructions: ED Viral Syndrome (Adult) Prescriptions: No Action aspirin 81 MG tablet 81 mg PO DAILY@0800 Qty: 30 RF: 0 esomeprazole magnesium 20 MG capsule 20 mg PO DAILY RF: 0 cholecalciferol (vitamin D3) 1,000 UNIT tablet 1,000 unit PO DAILY RF: 0 albuterol sulfate 1 INHALER inhaler 1 - 2 puff INHALATION Q4H PRN PRN (Reason: Wheezing) Qty: 1 RF: 0 famotidine 20 MG tablet 20 mg PO BID Qty: 28 RF: 0 Primary Care Provider: Osiel Zarate Referrals: Osiel Zarate MD [Primary Care Provider] - 1 Week if not improving Activity Restrictions/Additional Instructions: 1. Take 4 ibuprofen tablets every 8 hours for the next 2 to 3 days 2. You may take Imodium for the diarrhea 3. You need to increase your fluid intake Disposition Disposition: Home, Self Care
[2021-01-07] MEDS: Ondansetron 4 MG/2 ML Vial IV (10:17)
[2021-01-07] MEDS: Ketorolac 15 MG/ML Vial IV (10:17)
[2021-01-07 10:19] VITALS: BP 145/103; PULSE 60; RESP 18; TEMP 36.6; O2SAT 94
[2021-01-07 10:34] LABS: Absolute Lymphocyte Count 1.28 X10^3/uL (0.83-4.51); Absolute Neutrophil Count 7.9 X10^3/uL (2.0-7.7); Basophil# 0.05 X10^3/uL; Basophil% 0.5 % (0-1); Eosinophil# 0.32 X10^3/uL; Eosinophils% 3.1 % (0-5); Hematocrit 47.2 % (40-54); Hemoglobin 16.2 g/dL (13.0-16.5); Lymphocyte # 1.28 X10^3/ul (0.83-4.51); Lymphocyte % 12.4 % (19-41); Mean Corp Hgb Conc 34.3 g/dL (32-36); Mean Corpuscular Hgb 30.2 pg (27.0-32.0); Mean Corpuscular Volume 88.1 fL (80-94); Mean Platelet Vol. 9.2 fl (6.2-12.0); Monocyte# 0.74 X10^3/uL; Monocyte% 7.2 % (0-10); NRBC Flagged by Analyzer 0 % (0-5); Neutrophil # 7.87 X10^3/uL (2.7-7.7); Neutrophil % 76.5 % (47-70); Platelet Count 218 K/mm3 (150-450); RBC Distribution Width CV 11.6 % (11.6-14.6); RBC Distribution Width SD 37.1 fl (35.1-43.9); Red Blood Count 5.36 M/mm3 (4.6-6.2); White Blood Count 10.3 K/mm3 (4.4-11.0)
--- NOTE | 2021-01-07 10:38 | CT_ITS ---
STUDY: CT BRAIN WITHOUT CONTRAST REASON FOR EXAM: Male, 55 years old. Acute headache severe RADIATION DOSAGE (If Supplied By Facility): CTDIvol = ( 44.99 ) mGy, DLP = ( 829.85 ) mGycm TECHNIQUE: Transaxial CT imaging of the brain was performed without administration of intravenous contrast material. Individualized dose optimization techniques were used for this CT. COMPARISON: CT head 03/14/2017 FINDINGS: Normal soft tissue structures. Normal calvarium. Normal size ventricles and extra-axial spaces for the patient''s age. Normal white matter tracts of the cerebral hemispheres. Normal basal ganglia and thalami. Normal brainstem. Normal cerebellum. There is no intracranial hemorrhage. There are no findings of an acute ischemic infarction. Normal visualized paranasal sinuses. CT/Brain/Head without Contrast IMPRESSION: Normal unenhanced CT scan of the brain. Electronically Signed: Yue Zamora MD at 11:10 EDT Tel , Service support ,
[2021-01-07 10:50] LABS: ALB/GLOB Ratio 1.3 RATIO (0.9-2.4); AST(SGOT) 39 U/L (15-37); Alanine Aminotransfer ALT/SGPT 90 U/L (16-61); Albumin, Serum 4.2 g/dL (3.2-5.0); Alkaline Phosphatase 75 U/L (45-117); Anion Gap 4 (5-15); BUN 18 mg/dL (7-18); BUN/Creat Ratio 14.2 RATIO (10-20); Calcium,Total 8.9 mg/dL (8.5-10.1); Chloride 104 mmol/L (98-107); Creatinine, Serum 1.27 mg/dL (0.70-1.30); EST Glomerular Filtration Rate 63 mL/min (>60); Est Glom Filt Rate - Afr Amer 76 mL/min (>60); Estimated Creatinine Clearance 75.15 ml/min; Globulin 3.3 g/dL (2.2-4.2); Glucose 94 mg/dL (74-106); Potassium 3.8 mmol/L (3.5-5.1); Protein, Total 7.5 g/dL (6.4-8.2); Sodium Level 138 mmol/L (136-145)
[2021-01-07 11:42] VITALS: BP 119/88; PULSE 56; RESP 17; TEMP 36.4; O2SAT 97
[2021-01-07 12:12] VITALS: BP 134/79; PULSE 62; RESP 15; O2SAT 99
[2021-01-07 12:37] VITALS: BP 124/84; PULSE 59; RESP 16; O2SAT 98
== END 2021-01-07 12:44 | disposition home or self-care (01) ==
PROVIDERS: Emergency Provider Emergency Medicine; PCP Family Medicine
DX: B34.9 Viral infection, unspecified (principal); E86.0 Dehydration; R19.7 Diarrhea, unspecified; R51.9 Headache, unspecified; Z79.82 Long term (current) use of aspirin; Z86.16 Personal history of COVID-19
CPT/HCPCS: 70450; 80053; 83605; 85025; 96374; 96375; 99284; J7040; J2405

== ENCOUNTER 2023-09-25 00:16 | Emergency (ER) | payer MEDICAID, SELFPAY ==
[2023-09-25 00:17] VITALS: BP 117/102; PULSE 105; RESP 18; TEMP 36.9; O2SAT 96; BMI 31.5
--- NOTE | 2023-09-25 00:26 | RAD_ITS ---
INDICATION: fever EXAMINATION/TECHNIQUE: X-RAY - XR Chest 1 View COMPARISON: No relevant prior comparison study available FINDINGS: LINES/DEVICES: None. LUNGS: The lungs are well expanded. No consolidation, edema or effusion. No pneumothorax. MEDIASTINUM AND CARDIOVASCULAR STRUCTURES: Cardiac silhouette not enlarged. Central airways and mediastinal contour are unremarkable. BONES AND SOFT TISSUES: No acute abnormality. RAD/Chest 1 View (Portable) IMPRESSION: No acute pulmonary finding. Electronically Signed: Eldon Hough MD at 1:05 EDT ,
--- NOTE | 2023-09-25 00:28 | EX.ED.DYSGE1 ---
HPI History of Present Illness Chief Complaint: General Illness Informant: patient Onset/Context/Timing Onset: Yesterday Narrative Narrative: Patient presents secondary to fever, body aches, headache. Patient states he became ill yesterday with bodyaches. He has headache and some slight congestion. Minimal cough noted. Patient had a temperature up to 102 prior to arrival and did take Tylenol. Patient denies rash or wound. No urinary symptoms. [facility] Medical History (Updated 09/25/23 @ 01:[address] Marleny Sparks MD) Kidney stone GERD (gastroesophageal reflux disease) Home Medications ?Medication ?Instructions ?Recorded ?Last Taken ?Type aspirin 81 mg tablet,delayed 81 mg PO DAILY@0800 #30 tabs 01/05/17 03/16/20 Rx release cholecalciferol (vitamin D3) 25 1,000 unit PO DAILY 03/11/20 03/16/20 History mcg (1,000 unit) tablet esomeprazole magnesium 20 mg 20 mg PO DAILY 03/11/20 03/16/20 History capsule,delayed release albuterol sulfate 90 mcg/actuation 1 - 2 puff inhalation Q4H PRN PRN 03/12/20 Unknown Rx aerosol inhaler Wheezing ##1 famotidine 20 mg tablet 20 mg PO BID #28 TABLETS 08/12/20 Unknown Rx Allergy/AdvReac Type Severity Reaction Status Date / Time Penicillins (PCN) Allergy Hives Verified 09/25/23 00:17 Surgical History Hx of tonsillectomy Social History household members: none Smoking Status: Never smoker alcohol intake: never substance use type: does not use ROS ROS ED Constitutional Constitutional ED: Reports fever(s) Eyes Eyes: Denies change in vision or discharge from eye(s) ENT ENT ED: Denies discharge from eye(s), rhinorrhea or sore throat Cardiovascular Cardiovascular: Denies chest pain Respiratory/Chest Respiratory/Chest: Reports cough; Denies dyspnea Gastrointestinal Gastrointestinal: Reports nausea and vomiting; Denies abdominal pain or diarrhea Genitourinary Genitourinary ED: Denies dysuria Musculoskeletal Musculoskeletal: Reports myalgias; Denies back pain or extremity pain Integumentary Denies Abrasions or rash Neurologic Neurologic: Reports headache(s) and weakness Psychiatric Psychiatric: Denies anxiety or depression Allergic/Immunologic Allergic/Immunologic ED: Denies lip swelling or urticaria EXAM Physical Exam Const Vital Signs: 09/25/23 00:17 09/25/23 00:17 Temperature 98.5 F 98.5 F Temperature Source Oral Oral Pulse Rate 105 H 105 H Respiratory Rate 18 18 Blood Pressure 117/102 H 117/102 H Blood Pressure Mean 107 107 Pulse Ox 96 96 Oxygen Delivery Method Room Air Room Air Positive well nourished and well developed General Appearance ED: well developed HEENT Reports moist mucous membranes Eyes EOMs intact bilaterally Chest Wall inspection of chest normal and palpation of chest normal Resp normal respiratory effort and clear to auscultation bilaterally Cardio regular rate and regular rhythm GI non-tender Palpation: soft Extremity normal to inspection Neuro oriented x3 and no sensory deficits noted Motor Exam: strength 5/5 throughout Psych mental status grossly normal Skin no rashes or lesions noted MDM MDM MDM Narrative Medical decision making narrative: 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 IV line initiated. Labwork obtained to evaluate for leukocytosis, anemia, and electrolyte derangement. Urinalysis obtained to evaluate for infection/hematuria. Chest x-ray obtained to evaluate for acute lung pathology, cardiac size, or mediastinal abnormality. Swab for COVID, influenza, and RSV will be obtained. Patient given IV fluids here along with a dose of Toradol. History & Record Review Discussion w/independent historian: Patient Additional record(s) reviewed:: Prior labs Lab Data Attestation: I reviewed the patient's lab results. Labs: Laboratory Results - last 24 hr 09/25/23 09/25/23 00:26 00:35 WBC 6.8 RBC 5.76 Hgb 17.2 H Hct 49.0 MCV 85.1 MCH 29.9 MCHC 35.1 RDW Std Deviation 36.5 RDW Coeff of Jesse 11.9 Plt Count 157 MPV 8.8 Immature Gran % (Auto) 1.200 H Neut % (Auto) 79.3 H Lymph % (Auto) 9.8 L [place] % (Auto) 9.2 Eos % (Auto) 0.1 Baso % (Auto) 0.4 Absolute Neuts (auto) 5.4 Absolute Lymphs (auto) 0.66 L Nucleated RBC % 0 Sodium 132 L Potassium 3.6 Chloride 101 Carbon Dioxide 24.0 Anion Gap 7 BUN 17 Creatinine 1.64 H Estim Creat Clear Calc 64.95 Est GFR (MDRD) Af Amer 56 L Est GFR (MDRD) Non-Af 46 L BUN/Creatinine Ratio 10.4 Glucose 126 H Calcium 9.0 Urine Color Yellow Urine Clarity Clear Urine pH 7.0 Ur Specific [place] 1.010 Urine Protein 30 H Urine Glucose (UA) Normal Urine Ketones 5 H Urine Occult Blood 50 H Urine Nitrite Negative Urine Bilirubin 1 H Urine Urobilinogen 4 H Ur Leukocyte Esterase 25 H Urine RBC 0-5 SEEN Urine WBC 0 SEEN Ur Squamous Epith Cells 0 SEEN Urine Bacteria 1+ Urine Mucus 2+ Radiography Chest X-Ray - ED: 1 View, Read by ED Physician, Normal, Heart, Lungs and Mediastinum Diagnostic Testing: Clinical Impression(s) from Imaging Studies Chest X-Ray 09/25/23 00:26 IMPRESSION: No acute pulmonary finding. Electronically Signed: Eldon Hough MD at 1:05 EDT Reading Location ID and State: [facility] / [place] Tel , Service support , Treatment and Re-Evaluation :: CBC was normal white count 6.8 with 79% neutrophils. Hemoglobin is concentrated at 17.2. Chemistry studies significant for sodium of 132 and creatinine of 1.64. I was able to find some prior labs from [facility] and drawn on August 05 of this year. At that time his creatinine was 1.35 and his sodium was 138. Glucose is 126. Urinalysis shows only 5 ketones with 1+ bacteria and 0 white cells. No nitrites noted. On repeat evaluation patient does feel improved. He has received a liter of IV fluids here. His swab for COVID, influenza, and RSV here is negative. His chest x-ray per my interpretation reveals no infiltrate. His urinalysis shows no sign of acute infection. I did discuss with him that I believe he has a virus and has symptoms of a viral syndrome. We discussed the hydration and increasing fluids, specifically Gatorade or Powerade as able. Patient is comfortable with the plan. Return instructions given. Discharge Plan Triage Chief Complaint: General Illness ED Provider: Marleny Sparks Dx/Rx/DC Orders Clinical Impression: Viral syndrome Instructions: ED Viral Syndrome (Adult) Prescriptions: No Action aspirin 81 MG tablet 81 mg PO DAILY@0800 Qty: 30 0RF esomeprazole magnesium 20 MG capsule 20 mg PO DAILY cholecalciferol (vitamin D3) 1,000 UNIT tablet 1,000 unit PO DAILY albuterol sulfate 1 INHALER inhaler 1 - 2 puff INHALATION Q4H PRN PRN (Reason: Wheezing) Qty: 1 0RF famotidine 20 MG tablet 20 mg PO BID Qty: 28 0RF Primary Care Provider: Osiel Zarate Referrals: Osiel Zarate MD [Primary Care Provider] - 3-5 Days if not improving Print Language: Polish Disposition Disposition: Home, Self Care
[2023-09-25 00:40] LABS: Absolute Lymphocyte Count 0.66 X10^3/uL (0.83-4.51); Absolute Neutrophil Count 5.4 X10^3/uL (2.0-7.7); Basophil# 0.03 X10^3/uL; Basophil% 0.4 % (0-1); Eosinophil# 0.01 X10^3/uL; Eosinophils% 0.1 % (0-5); Hemoglobin 17.2 g/dL (13.0-16.5); Lymphocyte # 0.66 X10^3/ul (0.83-4.51); Lymphocyte % 9.8 % (19-41); Mean Corp Hgb Conc 35.1 g/dL (32-36); Mean Corpuscular Hgb 29.9 pg (27.0-32.0); Mean Corpuscular Volume 85.1 fL (80-94); Mean Platelet Vol. 8.8 fl (6.2-12.0); Monocyte# 0.62 X10^3/uL; Monocyte% 9.2 % (0-10); NRBC Flagged by Analyzer 0 % (0-5); Neutrophil # 5.36 X10^3/uL (2.7-7.7); Neutrophil % 79.3 % (47-70); Platelet Count 157 K/mm3 (150-450); RBC Distribution Width CV 11.9 % (11.6-14.6); RBC Distribution Width SD 36.5 fl (35.1-43.9); Red Blood Count 5.76 M/mm3 (4.6-6.2); White Blood Count 6.8 K/mm3 (4.4-11.0)
[2023-09-25] MEDS: 0.9% Normal Saline (1000mL) 1,000 ML 1000 ML IV (00:42)
[2023-09-25] MEDS: Ketorolac 15 MG/ML Vial IV (00:42)
[2023-09-25 00:44] LABS: Squamous Epithelial Cells - UA 0 SEEN /hpf (0-5); White Blood Cells 0 SEEN /hpf (0-5)
[2023-09-25 00:45] LABS: Color, Urine Yellow (Yellow); Glucose, Dipstick Normal (Normal); Ketone-Dipstick 5 mg/dl (Negative); Leukocyte Esterase-Dipstick 25 /ul (Negative); Nitrite-Dipstick Negative (Negative); Occult Blood-Urine 50 /ul (Negative); Protein-Dipstick 30 mg/dl (Negative); Urine Clarity Clear (Clear); Urine Urobilinogen 4 mg/dl (Normal)
[2023-09-25 00:53] LABS: Bacteria 1+ /hpf (None Seen); Mucous, Urine 2+ /hpf (<or=2+); Red Blood Cells-Urine 0-5 SEEN /hpf (0-5); Urine Bilirubin Dipstick 1 mg/dL (Negative)
[2023-09-25 00:56] LABS: Anion Gap 7 (5-15); BUN 17 mg/dL (7-18); BUN/Creat Ratio 10.4 RATIO (10-20); Chloride 101 mmol/L (98-107); Creatinine, Serum 1.64 mg/dL (0.70-1.30); EST Glomerular Filtration Rate 46 mL/min (>60); Est Glom Filt Rate - Afr Amer 56 mL/min (>60); Estimated Creatinine Clearance 64.95 ml/min; Glucose 126 mg/dL (74-106); Potassium 3.6 mmol/L (3.5-5.1); Sodium Level 132 mmol/L (136-145)
[2023-09-25] MEDS: 0.9% Normal Saline (1000mL) 1,000 ML 150 ML IV (01:45)
[2023-09-25 01:58] VITALS: BP 121/97; PULSE 78; RESP 16; TEMP 36.9; O2SAT 93
== END 2023-09-25 02:02 | disposition home or self-care (01) ==
PROVIDERS: Emergency Provider Emergency Medicine; PCP Family Medicine; Visit Provider Emergency Medicine
DX: B34.9 Viral infection, unspecified (principal); R50.9 Fever, unspecified; K21.9 Gastro-esophageal reflux disease without esophagitis; Z79.899 Other long term (current) drug therapy
CPT/HCPCS: A4216; J7030; 71045; 80048; 81001; 85025; 87040; 87631; 96361; 96374; 99283

== ENCOUNTER 2024-09-03 18:03 | Emergency (ER) | payer MEDICAID, SELFPAY ==
[2024-09-03 18:04] VITALS: BP 145/104; PULSE 88; RESP 18; TEMP 36.2; O2SAT 96; BMI 31.9
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
[2024-09-03] MEDS: Famotidine 200 MG/20 ML MDV 20 MG in 0.9% Normal Saline (Pres. free 8 ML 300 MG IV (18:28)
[2024-09-03 19:03] VITALS: BP 160/109; PULSE 69; RESP 16; O2SAT 96
[2024-09-03 19:29] VITALS: BP 154/118; PULSE 63; RESP 20; TEMP 36.5; O2SAT 95
== END 2024-09-03 19:30 | disposition home or self-care (01) ==
PROVIDERS: Emergency Provider Emergency Medicine; PCP Family Medicine; Referring Provider Emergency Medicine; Visit Provider Emergency Medicine
DX: T50.995A Adverse effect of other drugs, medicaments and biological substances, initial encounter (principal); R21 Rash and other nonspecific skin eruption; R51.9 Headache, unspecified; F41.9 Anxiety disorder, unspecified; E78.00 Pure hypercholesterolemia, unspecified; R03.0 Elevated blood-pressure reading, without diagnosis of hypertension; K21.9 Gastro-esophageal reflux disease without esophagitis; Z87.442 Personal history of urinary calculi
CPT/HCPCS: 99284; A4216